=== PATIENT | female | born 1955 | race Hispanic/Latino ===

== ENCOUNTER 2017-01-23 15:26 | Outpatient (CLI) | payer MEDICARE ==
--- NOTE | 2017-01-23 15:53 | XRay Report ---
RIGHT FOREARM RADIOGRAPHS INDICATION: Right forearm pain. COMPARISON: None similar. FINDINGS: AP and lateral right forearm views demonstrate intact bones and included elbow and wrist articulations. Mild degenerative changes at the first carpometacarpal joint incidentally noted. Possible osteopenia. CONCLUSION: No acute right forearm radiographic abnormality with other findings, as above. Thank you for the opportunity to participate in this patient's care.
== END 2017-01-23 15:27 | disposition home or self-care (01) ==
LOC: SPVIMAG 15:26
PROVIDERS: ATTEND Orthopaedic Surgery Sports Medicine
DX: M18.9 Osteoarthritis of first carpometacarpal joint, unspecified (principal)

== ENCOUNTER 2017-06-05 13:41 | Outpatient (CLI) | payer MEDICARE ==
--- NOTE | 2017-06-05 15:47 | XRay Report ---
Bilateral standing knees: Bilateral knee pain. There is good alignment of both knees. The knee joint spaces appear preserved bilaterally. The articular surfaces are smooth. The bones are moderately well mineralized. No swelling and no effusions identified. Impression: No abnormality is identified.
== END 2017-06-05 13:42 | disposition home or self-care (01) ==
LOC: SPVIMAG 13:41
PROVIDERS: ATTEND Orthopaedic Surgery Sports Medicine
DX: M25.562 Pain in left knee (principal); M25.561 Pain in right knee